=== PATIENT | female | born 1990 | race Caucasian/White ===

== ENCOUNTER 2021-06-06 08:12 | Outpatient (CLI) | payer OTHER | END 2021-06-06 08:13 | disposition home or self-care (01) | LOC: BICMAMMO 08:12 | PROVIDERS: ATTEND Nurse Practitioner Family | DX: N63.10 Unspecified lump in the right breast, unspecified quadrant (principal); Z80.3 Family history of malignant neoplasm of breast | CPT/HCPCS: 77066; G0279 ==

== ENCOUNTER 2022-01-09 10:32 | Outpatient (CLI) | payer BC | END 2022-01-09 10:33 | disposition home or self-care (01) | LOC: BICULT 10:32 | PROVIDERS: ATTEND Nurse Practitioner Family | DX: R87.612 Low grade squamous intraepithelial lesion on cytologic smear of cervix (LGSIL) (principal); L68.9 Hypertrichosis, unspecified; Z30.09 Encounter for other general counseling and advice on contraception; R93.89 Abnormal findings on diagnostic imaging of other specified body structures | CPT/HCPCS: 76856 ==

== ENCOUNTER 2024-08-31 22:22 | Inpatient (IN) | payer BC ==
[2024-08-31] MEDS ORDERED: Lidocaine Viscous Sol 2% 15 ml UD Cup ONE (22:45)
[2024-08-31] MEDS ORDERED: Ondansetron PF 4 MG/2 ML Vial ONE (22:45)
[2024-08-31] MEDS ORDERED: Milk Of Magnesia 30 ML UDCUP ONE (22:47)
[2024-08-31] MEDS ORDERED: Mag-Al 1200 mg/1200 mg/30 ML UDCUP ONE (22:50)
[2024-08-31 23:12] LABS: #Basophils 0.03 10x3/uL (0.0-0.2); %Basophils 0.2 % (0.0-1.0); %Eosinophils 0.4 % (0.0-10.0); %Lymphocytes 10.2 % (21.0-51.0); %Neutrophils 83.3 % (42.0-75.0); Hematocrit 41.9 % (36.0-47.0); Hemoglobin 14.4 g/dL (12.0-16.0); Mean Corpuscular HGB CONC 34.4 g/dL (32.0-36.0); Mean Corpuscular Hemoglobin 29.8 pg (27.0-31.0); Mean Corpuscular Volume 86.7 fL (78.0-98.0); Mean Platelet Volume 9.9 fL (7.4-10.4); Platelet Count 365 10x3/uL (130-400); RBC Distribution Width 11.7 % (11.5-14.5); Red Blood Cell (RBC) Count 4.83 mill/uL (4.20-5.40)
[2024-08-31 23:27] LABS: BHCG - Serum Negative (NEGATIVE); Pregs Control Background? CLEAR/WHITE (CLR/WHITE); Pregs Control Bar Appear? YES (CONTROL BAR)
[2024-08-31 23:28] LABS: ALT (SGPT) 29 U/L (Less than 34); AST (SGOT) 46 U/L (11-34); Albumin 4.4 g/dL (3.1-4.5); Alkaline Phosphatase 91 U/L (40-110); Anion Gap 14 mmol/L (10-20); BUN (Urea Nitrogen) 22 mg/dL (7.0-18.7); Bilirubin, Total 0.5 mg/dL (0.3-1.2); Calc. Creatinine Clearance 0 mL/min (70-130); Calcium 9.7 mg/dL (7.8-10.44); Carbon Dioxide 28 mmol/L (22-29); Chloride 102 mmol/L (98-107); Estimated GFR 98; Globulin 3.6 g/dL (2.4-3.5); Glucose 117 mg/dL (70-105); Lipase 36 U/L (8-78); Sodium 140 mmol/L (136-145)
[2024-09-01] MEDS ORDERED: Morphine 4 MG/ML VIAL ONE (00:19)
[2024-09-01] MEDS ORDERED: Sodium Chloride 0.9% 100 ML ONE (00:19)
[2024-09-01] MEDS ORDERED: Ondansetron PF 4 MG/2 ML Vial IVP PRN (00:19)
[2024-09-01] MEDS ORDERED: Piperacillin/Tazobactam 3.375 GM VIAL ONE (00:20)
[2024-09-01] MEDS: Sodium Chloride 0.9% 1,000 ML IV SCH (01:01)
[2024-09-01] MEDS: Piperacillin/Tazobactam 3.375 GM in Sodium Chloride 0.9% 100 ML IVPB SCH (05:04)
[2024-09-01 05:13] VITALS: BMI 33.9
[2024-09-01 05:17] LABS: #Basophils 0.03 10x3/uL (0.0-0.2); %Basophils 0.3 % (0.0-1.0); %Eosinophils 0.7 % (0.0-10.0); %Lymphocytes 15.4 % (21.0-51.0); %Monocytes 8.5 % (0.0-10.0); %Neutrophils 74.3 % (42.0-75.0); Hematocrit 40.3 % (36.0-47.0); Hemoglobin 13.3 g/dL (12.0-16.0); Mean Corpuscular Hemoglobin 29.2 pg (27.0-31.0); Mean Corpuscular Volume 88.4 fL (78.0-98.0); Mean Platelet Volume 9.8 fL (7.4-10.4); Platelet Count 325 10x3/uL (130-400); RBC Distribution Width 11.8 % (11.5-14.5); Red Blood Cell (RBC) Count 4.56 mill/uL (4.20-5.40)
[2024-09-01 06:02] LABS: ALT (SGPT) 110 U/L (Less than 34); AST (SGOT) 139 U/L (11-34); Albumin 3.6 g/dL (3.1-4.5); Alkaline Phosphatase 85 U/L (40-110); Anion Gap 11 mmol/L (10-20); BUN (Urea Nitrogen) 17 mg/dL (7.0-18.7); Bilirubin, Total 0.5 mg/dL (0.3-1.2); Calc. Creatinine Clearance 169 mL/min (70-130); Calcium 8.1 mg/dL (7.8-10.44); Carbon Dioxide 22 mmol/L (22-29); Chloride 111 mmol/L (98-107); Estimated GFR 122; Glucose 96 mg/dL (70-105); Protein, Total 6.6 g/dL (6.0-8.3); Sodium 140 mmol/L (136-145)
[2024-09-01] MEDS: Morphine 2 MG/ML VIAL SLOW IVP PRN (06:37)
[2024-09-01] MEDS: FLU (Fluarix Triv) TS24-25(6MOS UP)/PF 45 MCG/0.5 ML Syringe IM ONE (08:39)
[2024-09-01] MEDS: Famotidine 20 MG TAB PO SCH (09:25)
[2024-09-01] MEDS: Acetaminophen 325 MG TAB PO PRN (09:59)
[2024-09-01] MEDS: Indocyanine Green 25 MG/10 ML VIAL IVP SCH (14:02)
[2024-09-01] MEDS ORDERED: EPINEPHrine 1 MG/ML VIAL ONE (17:58)
[2024-09-01] MEDS ORDERED: Bupivacaine 0.25% HCL 30 ML VIAL ONE (17:58)
[2024-09-01] MEDS ORDERED: Ketorolac Tromethamine 30 MG (1 mL) VIAL ONE (18:00)
[2024-09-01] MEDS ORDERED: fentaNYL PF 100 MCG/2 ML SYRINGE ONE (18:00)
[2024-09-01] MEDS ORDERED: SUGAMMADEX SODIUM 200 MG/2 ML VIAL ONE ×2 (18:00→19:30)
[2024-09-01] MEDS ORDERED: PROPOFOL 20 ML ONE (18:00)
[2024-09-01] MEDS ORDERED: Rocuronium Bromide 10 MG/ML (10ML VIAL) ONE (18:00)
[2024-09-01] MEDS ORDERED: Dexamethasone 4 mg/ml Vial ONE (18:00)
[2024-09-01] MEDS ORDERED: Ondansetron PF 4 MG/2 ML Vial ONE (18:00)
[2024-09-01] MEDS ORDERED: Lidocaine 1% PF 5 ML VIAL ONE (18:00)
[2024-09-01] MEDS ORDERED: PHENYLEPHRINE-NS 100 MCG/ML 10 ML SYRINGE ONE (18:57)
[2024-09-01] MEDS ORDERED: Promethazine HCl 25 MG/ML VIAL ONE (19:44)
[2024-09-01] MEDS ORDERED: fentaNYL 50 mcg/mL 1 mL Vial ONE (19:50)
[2024-09-01] MEDS: Morphine 4 MG/ML VIAL SLOW IVP SCH (21:20)
[2024-09-02 04:53] LABS: #Basophils Less than 0.03 10x3/uL (0.0-0.2); #Eosinophils Less than 0.03 10x3/uL (0.0-0.7); %Basophils 0.2 % (0.0-1.0); %Lymphocytes 10.6 % (21.0-51.0); %Monocytes 4.4 % (0.0-10.0); %Neutrophils 84.1 % (42.0-75.0); Hematocrit 39.7 % (36.0-47.0); Hemoglobin 13.2 g/dL (12.0-16.0); Mean Corpuscular HGB CONC 33.2 g/dL (32.0-36.0); Mean Corpuscular Hemoglobin 29.3 pg (27.0-31.0); Mean Platelet Volume 9.8 fL (7.4-10.4); Platelet Count 334 10x3/uL (130-400); RBC Distribution Width 11.9 % (11.5-14.5); Red Blood Cell (RBC) Count 4.51 mill/uL (4.20-5.40)
[2024-09-02 05:11] LABS: ALT (SGPT) 101 U/L (Less than 34); AST (SGOT) 62 U/L (11-34); Albumin 3.6 g/dL (3.1-4.5); Alkaline Phosphatase 92 U/L (40-110); Anion Gap 11 mmol/L (10-20); BUN (Urea Nitrogen) 8 mg/dL (7.0-18.7); Bilirubin, Total 0.3 mg/dL (0.3-1.2); Calc. Creatinine Clearance 153 mL/min (70-130); Calcium 7.5 mg/dL (7.8-10.44); Carbon Dioxide 22 mmol/L (22-29); Chloride 111 mmol/L (98-107); Estimated GFR 119; Globulin 3.1 g/dL (2.4-3.5); Glucose 138 mg/dL (70-105); Potassium 3.9 mmol/L (3.5-5.1); Protein, Total 6.7 g/dL (6.0-8.3); Sodium 140 mmol/L (136-145)
[2024-09-02 08:12] VITALS: BP 111/75
[2024-09-02 12:16] VITALS: TEMP 97.9
== END 2024-09-02 13:11 | disposition home or self-care (01) | DRG 419 ==
LOC: ERS 22:22 → SURG A 09-01 00:22
PROVIDERS: ADMIT Surgery; ATTEND Surgery
PROC: 0FT44ZZ Resection of Gallbladder, Percutaneous Endoscopic Approach (ICD-10-PCS; principal; 2024-09-01)
PROC: BF131ZZ Fluoroscopy of Gallbladder and Bile Ducts using Low Osmolar Contrast (ICD-10-PCS; 2024-09-01)
PROC: 8E0W4CZ Robotic Assisted Procedure of Trunk Region, Percutaneous Endoscopic Approach (ICD-10-PCS; 2024-09-01)
DX: K81.0 Acute cholecystitis (principal)
CPT/HCPCS: 36415; 76705; 80053; 83605; 83690; 84703; 85025; 87040; 88304; 96361; 96365; 96375; C1889; J0171; J0665; J1100; J1885; J2270; J2272; J2405; J2543; J2550; J2704; J3010; J7030; S2900